=== PATIENT | male | born 1955 | race Caucasian/White ===

== ENCOUNTER → 2017-03-06 | Outpatient (CLI) | payer OTHER ==
[2017-03-06 18:15] LABS: BLOOD UREA NITROGEN 17 mg/dl (7-18); CREATININE 0.99 mg/dl (0.60-1.40)
== END | disposition home or self-care (01) ==
LOC: C.LAB1850 15:59
PROVIDERS: ATTEND Internal Medicine Infectious Disease
DX: M13.0 Polyarthritis, unspecified (principal); A69.22 Other neurologic disorders in Lyme disease

== ENCOUNTER → 2017-03-07 | Outpatient (CLI) | payer OTHER ==
[~2017-03-07] MED LIST: GADAVIST IV PRN
--- NOTE | 2017-03-07 08:00 | DIAGNOSTIC IMAGING REPORT ---
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 TECHNIQUE: Utilizing a 1.5 Barbara magnet and dedicated coil, multiplanar, multiecho imaging of the brain was performed pre and postcontrast administration. IV administration of 8.5 mL of Gadavist contrast was uneventful. FINDINGS: Diffusion-weighted images are negative for an acute ischemic insult. Signal characteristics of the cerebellar as well as cerebral hemispheres are unremarkable. There is no significant abnormal postcontrast enhancement. Ventricular system is midline. Sella and parasellar regions are unremarkable. No abnormal postcontrast enhancement. IMPRESSION: Negative study The above report was generated using voice recognition software. It may contain grammatical, syntax or spelling errors. Electronically signed by: Robby Fournier M.D. 03/07/2017 7:58 AM Dictated Date/Time: 03/07/2017 7:52 AM
== END | disposition home or self-care (01) ==
LOC: C.MRIBC 06:50 → EDSEX 07:00
PROVIDERS: ATTEND Internal Medicine Infectious Disease
DX: A69.22 Other neurologic disorders in Lyme disease (principal)